=== PATIENT | male | born 1960 | race Caucasian/White ===

== ENCOUNTER 2019-11-23 11:24 | Observation (INO) ==
[2019-11-23 12:52] LABS: Bacteria,Urine Many /HPF (Few); Bilirubin,Urine Negative (Negative); Blood, Urine Moderate mg/dL (Negative); Glucose,Urine (UA) Negative (Negative); Ketones,Urine 20 mg/dL (Negative); Mucus,Urine Occasional /LPF (Occasional); Nitrite,Urine Negative (Negative); Protein,Urine 30 MG/DL; RBC,Urine 3 /HPF (0-4); Squamous Epithelial Cell,Urine Occasional /HPF (0-10); Urine Appearance Slightly Hazy (Clear); Urine Color Yellow (Yellow); Urine Specific Gravity 1.016 (1.001-1.035); Urine Urobilinogen < 2.0 EU/DL (0.2-1.0); WBC,Urine 55 /HPF (0-6)
[2019-11-23 13:00] LABS: Barbiturates Screen,Urine Negative (Negative); Benzodiazepines Screen,Urine Negative (Negative); Cannabinoid Screen,Urine Positive (Negative); Opiate Screen,Urine Negative (Negative); Phencyclidine Screen,Urine Negative (Negative)
[2019-11-23 13:04] LABS: Basophils % 0.2 % (0.0-0.8); Hemoglobin 14.4 GM/DL (14.0-18.0); Immature Granulocytes % 1.1 %; Immature Granulocytes Absolute 0.23 #; Lymphocytes # 0.8 10*3/uL (1.4-4.0); Lymphocytes % 3.9 % (21.2-54.2); Mean Corpuscular HGB Conc 34.3 GM/DL (32-36); Mean Corpuscular Volume 91.9 FL (87-102); Mean Platelet Volume 9.4 FL (9.6-12.0); Monocytes % 9.5 % (1.7-12.7); Neutrophils % 85.3 % (38.7-73.9); Platelet Count 313 T/CUMM (130-400); Red Blood Count 4.57 MC/CUMM (3.8-5.5); Red Cell Distribution Width 12.6 % (9.3-17.3); White Blood Count 21.5 T/CUMM (4-12)
[2019-11-23 13:14] LABS: INR 1.1; PT Patient Result 11.6 SECS (9.8-11.9)
[2019-11-23] MEDS ORDERED: cefTRIAXone 1,000 MG in SODIUM CHLORIDE 0.9% 100 ML IV STA (13:26)
[2019-11-23 13:28] LABS: Albumin 2.9 G/DL (3.4-5.0); Bilirubin,Total 0.8 MG/DL (0.2-1.0); Calcium 9.5 MG/DL (8.5-10.1); Osmolality,Calculated 257.1 MOS/KG (273-304); Total Protein 7.7 G/DL (6.4-8.3)
[2019-11-23 13:33] LABS: Lymphocytes 3 % (20-55); Polychromasia Slight; Reactive Lymphocytes 1+; Segmented Neutrophils 89 % (50-85); Total Cells Counted 100
[2019-11-23 13:34] LABS: Platelet Estimate Normal
[2019-11-23] MEDS ORDERED: ONDANSETRON 4 MG/2 ML VIAL IV PRN (13:55)
[2019-11-23] MEDS: ACETAMINOPHEN 325 MG TABLET PO PRN ×2 (15:32→20:50)
[2019-11-23] MEDS ORDERED: FUROSEMIDE 20 MG/2 ML VIAL IV ONE (15:32)
[2019-11-23] MEDS: LACTATED RINGERS 1,000 ML IV SCH (15:32)
[2019-11-23] MEDS: DOCUSATE SODIUM 100 MG CAPSULE PO SCH (20:49)
[2019-11-23] MEDS: NORTRIPTYLINE 25 MG CAPSULE PO SCH (20:49)
[2019-11-23] MEDS ORDERED: METOPROLOL TARTRATE 25 MG TABLET PO SCH (21:00)
[2019-11-24] MEDS: LACTATED RINGERS 1,000 ML IV SCH (02:33)
[2019-11-24] MEDS: ACETAMINOPHEN 325 MG TABLET PO PRN ×3 (03:33→17:17)
[2019-11-24 05:04] LABS: Basophils % 0.2 % (0.0-0.8); Eosinophils # 0.1 10*3/uL (0.0-0.87); Eosinophils % 0.3 % (0.00-10.9); Hematocrit 38.4 VOL% (42.0-52.0); Hemoglobin 13.3 GM/DL (14.0-18.0); Immature Granulocytes % 0.6 %; Immature Granulocytes Absolute 0.12 #; Lymphocytes # 0.5 10*3/uL (1.4-4.0); Lymphocytes % 2.9 % (21.2-54.2); Mean Corpuscular HGB Conc 34.6 GM/DL (32-36); Mean Corpuscular Volume 89.3 FL (87-102); Mean Platelet Volume 9.8 FL (9.6-12.0); Monocytes % 10.5 % (1.7-12.7); Neutrophils % 85.5 % (38.7-73.9); Platelet Count 272 T/CUMM (130-400); Red Cell Distribution Width 12.6 % (9.3-17.3); White Blood Count 18.6 T/CUMM (4-12)
[2019-11-24 05:23] LABS: Osmolality,Calculated 259.1 MOS/KG (273-304)
[2019-11-24 05:28] LABS: Band Neutrophils 2 % (0-10); Lymphocytes 2 % (20-55); Platelet Estimate Normal; Segmented Neutrophils 85 % (50-85); Total Cells Counted 100
[2019-11-24 05:28] LABS: Albumin 2.5 G/DL (3.4-5.0); Bilirubin,Direct 0.21 MG/DL (0.0-0.20); Bilirubin,Indirect 0.2 MG/DL (0.0-1.0); Bilirubin,Total 0.4 MG/DL (0.2-1.0); Risk Ratio 2.17; VLDL CHOLESTEROL 13.2 MG/DL
[2019-11-24] MEDS: METOPROLOL TARTRATE 50 MG TABLET PO SCH ×2 (06:57→20:54)
[2019-11-24] MEDS ORDERED: lisinopriL 10 MG TABLET PO SCH (09:00)
[2019-11-24] MEDS: PANTOPRAZOLE 40 MG TABLET PO SCH (09:09)
[2019-11-24] MEDS: ATORVASTATIN 10 MG TABLET PO SCH (09:09)
[2019-11-24] MEDS: DOCUSATE SODIUM 100 MG CAPSULE PO SCH ×2 (09:09→20:54)
[2019-11-24] MEDS: SODIUM CHLORIDE 0.9% 1,000 ML IV SCH ×3 (09:10→20:55)
[2019-11-24] MEDS: FUROSEMIDE 20 MG/2 ML VIAL IV SCH (09:10)
[2019-11-24] MEDS: cefTRIAXone 500 MG in SYRINGE 1 EACH IV SCH (09:10)
[2019-11-24] MEDS: POTASSIUM CHLORIDE 20 MEQ TABLET PO PRN ×3 (10:55→19:29)
[2019-11-24] MEDS: LIDOCAINE 5% PATCH TRANSDERM SCH ×2 (15:51→20:55)
[2019-11-24] MEDS: NORTRIPTYLINE 25 MG CAPSULE PO SCH (20:54)
[2019-11-25] MEDS: ACETAMINOPHEN 325 MG TABLET PO PRN ×2 (03:45→21:19)
[2019-11-25 06:51] LABS: Basophils % 0.2 % (0.0-0.8); Eosinophils % 0.1 % (0.00-10.9); Hematocrit 37.2 VOL% (42.0-52.0); Immature Granulocytes % 0.7 %; Lymphocytes # 0.7 10*3/uL (1.4-4.0); Lymphocytes % 4.5 % (21.2-54.2); Mean Corpuscular HGB Conc 34.9 GM/DL (32-36); Mean Corpuscular Volume 90.7 FL (87-102); Mean Platelet Volume 10.5 FL (9.6-12.0); Monocytes % 10.2 % (1.7-12.7); Neutrophils % 84.3 % (38.7-73.9); Platelet Count 258 T/CUMM (130-400); Red Cell Distribution Width 12.8 % (9.3-17.3); White Blood Count 14.8 T/CUMM (4-12)
[2019-11-25 07:10] LABS: Albumin 2.1 G/DL (3.4-5.0); Band Neutrophils 3 % (0-10); Bilirubin,Total 0.6 MG/DL (0.2-1.0); Calcium 9.1 MG/DL (8.5-10.1); Lymphocytes 5 % (20-55); Osmolality,Calculated 262.7 MOS/KG (273-304); Platelet Estimate Adequate; Segmented Neutrophils 79 % (50-85); Total Cells Counted 100; Total Protein 6.2 G/DL (6.4-8.3)
[2019-11-25] MEDS: cefTRIAXone 500 MG in SYRINGE 1 EACH IV SCH (08:59)
[2019-11-25] MEDS: FUROSEMIDE 20 MG/2 ML VIAL IV SCH (09:00)
[2019-11-25] MEDS: PANTOPRAZOLE 40 MG TABLET PO SCH (09:00)
[2019-11-25] MEDS: METOPROLOL TARTRATE 50 MG TABLET PO SCH ×2 (09:00→21:19)
[2019-11-25] MEDS: DOCUSATE SODIUM 100 MG CAPSULE PO SCH ×2 (09:00→21:19)
[2019-11-25] MEDS: ATORVASTATIN 10 MG TABLET PO SCH (09:00)
[2019-11-25] MEDS: LIDOCAINE 5% PATCH TRANSDERM SCH ×2 (09:04→21:19)
[2019-11-25] MEDS: SODIUM CHLORIDE 0.9% 1,000 ML IV SCH ×3 (11:34→21:23)
[2019-11-25] MEDS: NORTRIPTYLINE 25 MG CAPSULE PO SCH (21:19)
[2019-11-26 06:26] LABS: Basophils % 0.2 % (0.0-0.8); Eosinophils # 0.1 10*3/uL (0.0-0.87); Eosinophils % 0.5 % (0.00-10.9); Hematocrit 40.3 VOL% (42.0-52.0); Hemoglobin 13.8 GM/DL (14.0-18.0); Immature Granulocytes % 0.8 %; Lymphocytes # 1.2 10*3/uL (1.4-4.0); Lymphocytes % 9.7 % (21.2-54.2); Mean Corpuscular HGB Conc 34.2 GM/DL (32-36); Mean Platelet Volume 10.5 FL (9.6-12.0); Monocytes % 12.3 % (1.7-12.7); Neutrophils % 76.5 % (38.7-73.9); Platelet Count 270 T/CUMM (130-400); Red Blood Count 4.43 MC/CUMM (3.8-5.5); Red Cell Distribution Width 13.1 % (9.3-17.3); White Blood Count 12.4 T/CUMM (4-12)
[2019-11-26 06:49] LABS: Alanine Aminotransferase 51 U/L (16-61); Albumin 1.9 G/DL (3.4-5.0); Alkaline Phosphatase 72 U/L (45-117); Aspartate Amino Transferase 27 U/L (0-37); Bilirubin,Direct < 0.100 MG/DL (0.0-0.20); Bilirubin,Indirect 0.3 MG/DL (0.0-1.0); Bilirubin,Total < 0.39 MG/DL (0.2-1.0); Blood Urea Nitrogen 15 MG/DL (7-18); Calcium 9.1 MG/DL (8.5-10.1); Estimated Glom Filtration Rate 78 ML/MIN; Glucose 98 MG/DL (74-106); Osmolality,Calculated 270.1 MOS/KG (273-304); Total Protein 6.2 G/DL (6.4-8.3)
[2019-11-26] MEDS: SODIUM CHLORIDE 0.9% 1,000 ML IV SCH (07:39)
[2019-11-26] MEDS: cefTRIAXone 500 MG in SYRINGE 1 EACH IV SCH (09:34)
[2019-11-26] MEDS: PANTOPRAZOLE 40 MG TABLET PO SCH (09:34)
[2019-11-26] MEDS: POTASSIUM CHLORIDE 20 MEQ TABLET PO PRN (09:34)
[2019-11-26] MEDS: DOCUSATE SODIUM 100 MG CAPSULE PO SCH (09:34)
[2019-11-26] MEDS: METOPROLOL TARTRATE 50 MG TABLET PO SCH (09:34)
[2019-11-26] MEDS: ATORVASTATIN 10 MG TABLET PO SCH (09:34)
[2019-11-26] MEDS: FUROSEMIDE 20 MG/2 ML VIAL IV SCH (09:34)
[2019-11-26] MEDS: LIDOCAINE 5% PATCH TRANSDERM SCH (09:35)
[2019-11-26 15:27] VITALS: BP 114/69
== END 2019-11-26 16:36 | disposition home health service (06) ==
LOC: EDUNIT# → EDBD → N.ED 11:24 → N.EDINP 13:55 → INTOOBSV 13:55 → N.5E 14:46
PROVIDERS: ADMIT Family Medicine; ATTEND Family Medicine

== ENCOUNTER 2022-03-06 22:53 | Inpatient (IN) ==
[2022-03-06] MEDS ORDERED: methylPREDNISolone SOD SUC 125 MG/2 ML VIAL IV STA (23:52)
[2022-03-06] MEDS ORDERED: ALBUTEROL/IPRATROPIUM 3 ML NEB RESP TX STA (23:52)
[2022-03-07 00:49] LABS: Basophils # 0.1 10*3/uL (0.0-0.2); Eosinophils # 0.3 10*3/uL (0.0-0.87); Eosinophils % 2.4 % (0.00-10.9); Hematocrit 48.8 VOL% (42.0-52.0); Hemoglobin 16.6 GM/DL (14.0-18.0); Immature Granulocytes % 1.1 %; Immature Granulocytes Absolute 0.12 #; Lymphocytes # 5.4 10*3/uL (1.4-4.0); Mean Corpuscular Volume 91.4 FL (87-102); Mean Platelet Volume 9.6 FL (9.6-12.0); Monocytes # 0.9 10*3/uL (0.11-0.8); Monocytes % 8.8 % (1.7-12.7); Neutrophils % 36.7 % (38.7-73.9); Platelet Count 336 T/CUMM (130-400); Red Blood Count 5.34 MC/CUMM (3.8-5.5); Red Cell Distribution Width 13.2 % (9.3-17.3); White Blood Count 10.7 T/CUMM (4-12)
[2022-03-07 00:51] LABS: INR 0.9; PT Patient Result 10.3 SECS (10.1-12.1)
[2022-03-07 00:54] LABS: ABG Base Excess -0.7 MMOL/L (-2.5-2.5); ABG HCO3 23.7 MMOL/L (20-26); ABG Oxygen Saturation 91.6 % (95-100); ABG PCO2 44.1 MM HG (35-48); ABG PH 7.363 (7.35-7.45); ABG PO2 65.7 MM HG (80-95); ABG TCO2 21.1 MMOL/L (23-27)
[2022-03-07 01:08] LABS: Albumin 3.3 G/DL (3.4-5.0); Bilirubin,Total 0.4 MG/DL (0.20-1.00); Calcium 9.3 MG/DL (8.5-10.1); Osmolality,Calculated 277.5 MOS/KG (273-304); Potassium 5.2 MMOL/L (3.5-5.1); Total Protein 7.3 G/DL (6.4-8.2)
[2022-03-07] MEDS ORDERED: LEVOFLOXACIN INJ 500 MG/100 ML PREMIX IV ONE (01:10)
[2022-03-07 01:11] LABS: Atypical Lymphocytes Few; Eosinophils 2 % (0-10); Lymphocytes 59 % (20-55); Platelet Estimate Normal; Total Cells Counted 100
[2022-03-07] MEDS ORDERED: ACETAMINOPHEN 325 MG TABLET PO PRN (01:19)
[2022-03-07] MEDS ORDERED: ALBUTEROL/IPRATROPIUM 3 ML NEB RESP TX PRN (01:19)
[2022-03-07] MEDS ORDERED: ONDANSETRON 4 MG/2 ML VIAL IV PRN (01:19)
[2022-03-07] MEDS: SODIUM CHLORIDE 0.9% 1,000 ML IV SCH ×3 (02:40→16:20)
[2022-03-07 05:27] LABS: Basophils # 0.1 10*3/uL (0.0-0.2); Basophils % 0.6 % (0.0-0.8); Eosinophils # 0.1 10*3/uL (0.0-0.87); Eosinophils % 0.5 % (0.00-10.9); Hematocrit 52.7 VOL% (42.0-52.0); Hemoglobin 17.2 GM/DL (14.0-18.0); Immature Granulocytes % 1.3 %; Immature Granulocytes Absolute 0.17 #; Lymphocytes # 2.1 10*3/uL (1.4-4.0); Lymphocytes % 15.5 % (21.2-54.2); Mean Corpuscular HGB Conc 32.6 GM/DL (32-36); Mean Corpuscular Volume 93.3 FL (87-102); Monocytes # 0.2 10*3/uL (0.11-0.8); Monocytes % 1.7 % (1.7-12.7); Neutrophils % 80.4 % (38.7-73.9); Platelet Count 343 T/CUMM (130-400); Red Blood Count 5.65 MC/CUMM (3.8-5.5); Red Cell Distribution Width 13.2 % (9.3-17.3); White Blood Count 13.2 T/CUMM (4-12)
[2022-03-07 05:57] LABS: Albumin 3.5 G/DL (3.4-5.0); Bilirubin,Total 0.4 MG/DL (0.20-1.00); Calcium 9.5 MG/DL (8.5-10.1); Osmolality,Calculated 281.4 MOS/KG (273-304); Potassium 3.8 MMOL/L (3.5-5.1); Total Protein 7.9 G/DL (6.4-8.2)
[2022-03-07] MEDS: PANTOPRAZOLE 40 MG TABLET PO SCH (08:47)
[2022-03-07] MEDS: CITALOPRAM 20 MG TABLET PO SCH (08:47)
[2022-03-07] MEDS: methylPREDNISolone SOD SUC 40 MG/1 ML VIAL IV SCH ×2 (08:48→18:00)
[2022-03-07] MEDS ORDERED: traMADol 50 MG TABLET PO PRN (21:15)
[2022-03-07] MEDS: MIRTAZAPINE 15 MG TABLET PO SCH (21:28)
[2022-03-08] MEDS: methylPREDNISolone SOD SUC 40 MG/1 ML VIAL IV SCH ×3 (02:37→17:16)
[2022-03-08] MEDS: LEVOFLOXACIN INJ 500 MG/100 ML PREMIX IV SCH (02:37)
[2022-03-08] MEDS: SODIUM CHLORIDE 0.9% 1,000 ML IV SCH ×4 (02:37→15:35)
[2022-03-08 05:27] LABS: Basophils % 0.2 % (0.0-0.8); Hematocrit 46.6 VOL% (42.0-52.0); Hemoglobin 15.5 GM/DL (14.0-18.0); Immature Granulocytes % 1.3 %; Immature Granulocytes Absolute 0.21 #; Lymphocytes # 1.1 10*3/uL (1.4-4.0); Lymphocytes % 6.3 % (21.2-54.2); Mean Corpuscular HGB Conc 33.3 GM/DL (32-36); Mean Corpuscular Volume 92.5 FL (87-102); Mean Platelet Volume 9.3 FL (9.6-12.0); Monocytes # 0.6 10*3/uL (0.11-0.8); Monocytes % 3.6 % (1.7-12.7); Neutrophils % 88.6 % (38.7-73.9); Platelet Count 343 T/CUMM (130-400); Red Blood Count 5.04 MC/CUMM (3.8-5.5); Red Cell Distribution Width 13.2 % (9.3-17.3); White Blood Count 16.8 T/CUMM (4-12)
[2022-03-08 06:06] LABS: Albumin 3.4 G/DL (3.4-5.0); Bilirubin,Total 0.5 MG/DL (0.20-1.00); Calcium 8.6 MG/DL (8.5-10.1); Osmolality,Calculated 282.5 MOS/KG (273-304); Potassium 3.7 MMOL/L (3.5-5.1); Total Protein 7.4 G/DL (6.4-8.2)
[2022-03-08] MEDS: PANTOPRAZOLE 40 MG TABLET PO SCH (08:47)
[2022-03-08] MEDS: CITALOPRAM 20 MG TABLET PO SCH (08:47)
[2022-03-08] MEDS: MIRTAZAPINE 15 MG TABLET PO SCH (20:38)
[2022-03-09] MEDS: LEVOFLOXACIN INJ 500 MG/100 ML PREMIX IV SCH (02:40)
[2022-03-09] MEDS: methylPREDNISolone SOD SUC 40 MG/1 ML VIAL IV SCH ×2 (02:40→11:22)
[2022-03-09] MEDS: SODIUM CHLORIDE 0.9% 1,000 ML IV SCH ×3 (08:11→14:29)
[2022-03-09] MEDS: PANTOPRAZOLE 40 MG TABLET PO SCH (08:14)
[2022-03-09] MEDS: CITALOPRAM 20 MG TABLET PO SCH (08:14)
[2022-03-09 11:42] VITALS: BP 134/80
== END 2022-03-09 14:38 | DRG 140 ==
LOC: N.ED 22:53 → N.3E 03-07 01:18
PROVIDERS: ADMIT Family Medicine; ATTEND Family Medicine